=== PATIENT | female | born 1955 | race Caucasian/White ===

== ENCOUNTER 2016-07-31 11:03 | Observation (INO) | payer OTHER ==
[~2016-07-31] VITALS: Ht 149.9 cm; Wt 57.6 kg
[~2016-07-31 11:03] MED LIST: CLONAZEPAM2 MG PO; CLOPIDOGREL75 MG PO; CRESTOR40 MG PO; ESCITALOPRAM OX20 MG PO; LO-DOSE ASPIRIN81 M1 PO; MOTRIN IB200 MG PO
[2016-07-31 12:26] LABS: HEMATOCRIT 41.9 % (36.0-46.0); MCH 29.7 PG (29.0-34.0); MCHC 33.7 G/DL (30.0-36.0); MCV 88.4 FL (83-99); MEAN PLAT.VOLUME 8.6 uM^3 (9.5-12.4); PLATELET COUNT 284 K/uL (156-360); RBC DIS.WIDTH-CV 12.7 % (11.8-14.6); RBC DIS.WIDTH-SD 41.1 % (39-53); RED BLOOD COUNT 4.74 M/uL (3.80-5.20); WHITE BLOOD COUNT 4.6 K/uL (4.1-10.2)
[2016-07-31 12:31] LABS: CHLORIDE 108 mEq/L (99-109); POTASSIUM 3.9 mEq/L (3.7-5.4); SODIUM 142 mEq/L (136-147)
[2016-07-31 12:33] LABS: GLUCOSE 146 mg/dL (70-99)
[2016-07-31 12:34] LABS: ANION GAP 10 MEQ/L (2-14)
[2016-07-31 12:37] LABS: GFR ESTIMATE (CALCULATED) > 59 mL/min/
[2016-07-31 12:38] LABS: UREA NITROGEN (BUN) 13 mg/dL (9-23)
[2016-07-31 12:41] LABS: TROP-I INTERPRETATION NEGATIVE; TROPONIN-I < 0.01 ng/mL (0.0-0.30)
[2016-07-31 15:38] LABS: PROTHROMBIN TIME 10.6 (9.2-11.2); PTT 26.4 (25-32)
[2016-07-31 17:19] VITALS: BP 101/56
[2016-07-31 19:14] LABS: TROP-I INTERPRETATION NEGATIVE; TROPONIN-I < 0.01 ng/mL (0.0-0.30)
[2016-07-31 20:21] VITALS: BP 105/56
[2016-08-01 00:20] VITALS: BP 82/60
[2016-08-01 01:02] VITALS: BP 84/62
[2016-08-01 01:03] LABS: TROP-I INTERPRETATION NEGATIVE; TROPONIN-I < 0.01 ng/mL (0.0-0.30)
[2016-08-01 03:00] VITALS: BP 97/46
[2016-08-01 08:13] VITALS: BP 125/49
== END 2016-08-01 10:49 | disposition home or self-care (01) ==
LOC: EME 11:03 → 5WEST 15:11 → EDOF 15:11 → 5WEST 17:16
PROVIDERS: Internal Medicine; Physician Assistant
DX: R07.89 Other chest pain (principal); I25.10 Atherosclerotic heart disease of native coronary artery without angina pectoris; Z95.5 Presence of coronary angioplasty implant and graft; I10 Essential (primary) hypertension; E78.5 Hyperlipidemia, unspecified; F41.9 Anxiety disorder, unspecified; F32.9 Major depressive disorder, single episode, unspecified; Z87.891 Personal history of nicotine dependence
CPT/HCPCS: 70450; 71020; 80048; 84484; 85027; 85610; 85730; 93005; 99281; 99284; G0378; J7040; Q0177